=== PATIENT | female | born 1935 | race African-American/Black ===

== ENCOUNTER 2024-02-25 19:20 | Emergency (ER) | payer OTHER, MEDICAID ==
[2024-02-25 20:17] LABS: #Basophils 0.04 10x3/uL (0.0-0.2); #Eosinophils 0.13 10x3/uL (0.0-0.5); #Monocytes 0.67 10x3/uL (0.0-1.1); #Neutrophils 3.77 10x3/uL (1.5-8.4); %Basophils 0.6 % (0.0-2.0); %Lymphocytes 28.7 % (18.0-47.0); %Monocytes 10.3 % (0.0-10.0); %Neutrophils 57.8 % (40.0-75.0); Hematocrit 36.4 % (34.9-44.5); Hemoglobin 12.2 g/dL (12.0-15.5); Mean Corpuscular HGB CONC 33.5 g/dL (32.0-36.0); Mean Corpuscular Hemoglobin 30.5 pg (27.0-33.0); Mean Platelet Volume 11.1 fL (7.4-10.4); Platelet Count 143 10x3/uL (150-450); RBC Distribution Width 13.9 % (11.5-14.5); White Blood Cell (WBC) Count 6.5 10x3/uL (3.5-10.5)
[2024-02-25 20:29] LABS: ALT (SGPT) 8 U/L (8-55); AST (SGOT) 12 U/L (5-34); Albumin 3.4 g/dL (3.4-4.8); Alkaline Phosphatase 68 U/L (40-110); Anion Gap 14 mmol/L (10-20); BUN (Urea Nitrogen) 23 mg/dL (9.8-20.1); Bilirubin, Total 0.6 mg/dL (0.2-1.2); Calc. Creatinine Clearance 0 mL/min (70-130); Carbon Dioxide 20 mmol/L (23-31); Chloride 111 mmol/L (98-107); Estimated GFR 25; Globulin 3.3 g/dL (2.4-3.5); Glucose 71 mg/dL (83-110); Potassium 3.9 mmol/L (3.5-5.1); Protein, Total 6.7 g/dL (5.8-8.1); Sodium 141 mmol/L (136-145)
[2024-02-25 20:34] LABS: Troponin I Less than 0.010 ng/mL (< 0.028)
[2024-02-25] MEDS ORDERED: Isosorbide Mononitrate 20 MG TAB PO SCH (22:30)
== END 2024-02-25 22:37 | disposition home or self-care (01) ==
LOC: CSHERS 19:20
DX: I10 Essential (primary) hypertension (principal); R07.9 Chest pain, unspecified; E11.9 Type 2 diabetes mellitus without complications
CPT/HCPCS: 36415; 71045; 80053; 83880; 84484; 85025; 93005